=== PATIENT | male | born 1990 | race Caucasian/White ===

== ENCOUNTER 2017-10-27 07:24 | Day surgery (SDC) | payer OTHER ==
[2017-10-27] VITALS (8 sets, daily range): BP systolic 110–119; BP diastolic 64–75
[~2017-10-27] VITALS: Ht 175.3 cm; Wt 68.0 kg
[~2017-10-27 07:24] MED LIST: ceFAZolin sod 1 GM in NS 55 ML IVPB ONE
[2017-10-27] MEDS ORDERED: Bacitracin Oint 15gm Tube TOPIC ONE (07:53)
[2017-10-27] MEDS ORDERED: Betadine 10% Oint 15gm TOPIC ONE (07:53)
[2017-10-27] MEDS ORDERED: Bupivacaine 0.25% Inj 30ml INJ ONE (07:53)
[2017-10-27] MEDS ORDERED: Dexamethasone 4mg/ml vial ONE ×2 (07:53→09:00)
[2017-10-27] MEDS ORDERED: Lidocaine 1% 10mg/ml/Epi 0.005mg/ml 30ml vial INJ ONE (07:53)
[2017-10-27] MEDS ORDERED: Bacitracin 50000 Units Vial ONE (07:54)
[2017-10-27] MEDS ORDERED: NKM (08:15)
[2017-10-27 08:49] LABS: BASOPHILS % (AUTO) 1.1 % (0.0-2.0); EOSINOPHILS % (AUTO) 2.9 % (0.0-3.0); HEMATOCRIT 44.9 % (42.0-52.0); HEMOGLOBIN 15.6 G/DL (14.2-18.0); LYMPHOCYTES % (AUTO) 20.5 % (20.0-45.0); MEAN CORPUSCULAR VOLUME 94 FL (80-99); MONOCYTES % (AUTO) 9.4 % (1.0-10.0); NEUTROPHILS % (AUTO) 66.1 % (45.0-75.0); PLATELET COUNT 187 K/UL (150-450); RED BLOOD COUNT 4.76 M/UL (4.70-6.10); WHITE BLOOD COUNT 7.7 K/UL (4.8-10.8)
[2017-10-27] MEDS ORDERED: LR 1000ml 1,000 ML IVLG SCH (08:55)
--- NOTE | 2017-10-27 08:55 | Pre-Procedure Note/Attestation ---
Pre-Procedure Note/Attestation Complete Prior to Procedure Planned Procedure: right Procedure Narrative: correction of a right bunion with osteotomy and screw fixation Indications for Procedure Pre-Operative Diagnosis: right foot painful bunion Attestation I attest that I discussed the nature of the procedure; its benefits; risks and complications; and alternatives (and the risks and benefits of such alternatives ), prior to the procedure, with the patient (or the patient's legal agency service representative). I attest that, if there was a reasonable possibility of needing a blood transfusion, the patient (or the patient's legal agency service representative) was given the [facility] standardized written summary, pursuant to the [place] Blood Safety Act ([place] Health and Safety Code # 1645, as amended). I attest that I re-evaluated the patient just prior to the surgery and that there has been no change in the patient's H&P, except as documented below: JANETT WILLIS DPM Oct 27, 2017 08:55
[2017-10-27 08:57] LABS: ANION GAP 5 mmol/L (5-15); BLOOD UREA NITROGEN 14 mg/dL (7-18); CALCIUM 9.3 MG/DL (8.5-10.1); CARBON DIOXIDE 30 MMOL/L (21-32); CHLORIDE 103 MMOL/L (98-107); POTASSIUM 4.4 MMOL/L (3.5-5.1); SODIUM 138 MMOL/L (136-145)
--- NOTE | 2017-10-27 08:58 | Anethesia Preoperative Eval ---
Anesthesia Pre-op PMH/ROS General Date of Evaluation: Oct 27, 2017 Time of Evaluation: 09:00 Anesthesiologist: ENRIQUE ASA Score: ASA 2 Mallampati Score Class I : Soft palate, uvula, fauces, pillars visible Class II: Soft palate, uvula, fauces visible Class III: Soft palate, base of uvula visible Class IV: Only hard plate visible Mallampati Classification: Class II Surgeon: ALBA Diagnosis: bUNION Surgical Procedure: BUNIECTOMY Anesthesia History: none Family History: no anesthesia problems Allergies: Coded Allergies: No Known Allergies (Unverified , 10/27/17) Medications: see eMAR Anesthesia Pre-op Phys. Exam Physician Exam Last Vital Signs Date Time Temp Pulse Resp B/P (MAP) Pulse Ox O2 Delivery O2 Flow Rate FiO2 10/27/17 08:14 98.0 61 17 113/64 99 Room Air 98.0 Constitutional: NAD Neurologic: CN 2-12 intact Cardiovascular: RRR Respiratory: CTA Gastrointestinal: S/NT/ND Airway Exam Mallampati Score: Class II MO: full ROM: full Teeth: intact Anesthesia Pre-op A/P Labs Hematology Test 10/27/17 08:25 White Blood Count 7.7 K/UL (4.8-10.8) Red Blood Count 4.76 M/UL (4.70-6.10) Hemoglobin 15.6 G/DL (14.2-18.0) Hematocrit 44.9 % (42.0-52.0) Mean Corpuscular Volume 94 FL (80-99) Mean Corpuscular Hemoglobin 32.7 PG (27.0-31.0) H Mean Corpuscular Hemoglobin Concent 34.7 G/DL (32.0-36.0) Red Cell Distribution Width 11.0 % (11.6-14.8) L Platelet Count 187 K/UL (150-450) Mean Platelet Volume 8.0 FL (6.5-10.1) Neutrophils (%) (Auto) 66.1 % (45.0-75.0) Lymphocytes (%) (Auto) 20.5 % (20.0-45.0) Monocytes (%) (Auto) 9.4 % (1.0-10.0) Eosinophils (%) (Auto) 2.9 % (0.0-3.0) Basophils (%) (Auto) 1.1 % (0.0-2.0) Coagulation Test 10/27/17 08:25 Prothrombin Time Pending Prothromb Time International Ratio Pending Activated Partial Thromboplast Time Pending Chemistry Test 10/27/17 08:25 Sodium Level Pending Potassium Level Pending Chloride Level Pending Carbon Dioxide Level Pending Blood Urea Nitrogen Pending Creatinine Pending Estimat Glomerular Filtration Rate Pending Glucose Level Pending Calcium Level Pending Risk Assessment & Plan Plan: GA Status Change Before Surgery: No Pre-Antibiotics Drug: ANCEF Given Within 1 Hr of Incision: Yes Time Given: 09:15 Severo Wall M.D. Oct 27, 2017 08:58
[2017-10-27] MEDS ORDERED: Acetaminophen (Non formulary) 100 ML IV ONE (09:00)
[2017-10-27] MEDS ORDERED: Propofol 200mg/20ml IV ONE (09:00)
[2017-10-27] MEDS ORDERED: LR 1000ml ONE (09:00)
[2017-10-27] MEDS ORDERED: Midazolam 2mg/2ml Inj ONE (09:00)
[2017-10-27] MEDS ORDERED: Metoclopramide 10mg/2ml Inj ONE (09:00)
[2017-10-27] MEDS ORDERED: fentaNYL 100 mcg/2 mL IV ONE (09:00)
[2017-10-27] MEDS ORDERED: Midazolam 2mg/2ml Inj IVP PRN (09:00)
[2017-10-27] MEDS ORDERED: Ketorolac 30mg Inj IV PRN (09:00)
[2017-10-27] MEDS ORDERED: Glycopyrrolate 0.2mg/ml 1ml Vial ONE (09:00)
[2017-10-27] MEDS ORDERED: fentaNYL 100 mcg/2 mL IV PRN (09:00)
[2017-10-27] MEDS ORDERED: Ketorolac 30mg Inj ONE (09:00)
[2017-10-27] MEDS ORDERED: Sterile Water Irrig 1000ml IRRIG ONE (09:00)
[2017-10-27] MEDS ORDERED: DiphenhydrAMINE 50mg/ml Inj IVP PRN (09:00)
[2017-10-27] MEDS ORDERED: NS Irrig 1000ml ONE (09:00)
--- NOTE | 2017-10-27 09:00 | Immediate Post-Op Evaluation ---
Immediate Post-Op Evalulation Immediate Post-Op Evalulation Procedure: BUNIECTOMY Date of Evaluation: Oct 27, 2017 Time of Evaluation: 12:00 IV Fluids: 1000 Blood Products: 0 Estimated Blood Loss: 20 Urinary Output: 0 Blood Pressure Systolic: 145 Blood Pressure Diastolic: 65 Pulse Rate: 69 Respiratory Rate: 18 O2 Sat by Pulse Oximetry: 99 Temperature (Fahrenheit): 98.6 Pain Score (1-10): 0 Nausea: No Vomiting: No Patient Status: awake, reacts, patent, extubated, none Hydration Status: adequate Drug: ANCEF Given Within 1 Hr of Incision: Yes Time Given: 09:15 Severo Wall M.D. Oct 27, 2017 09:00
--- NOTE | 2017-10-27 09:02 | 48 Hour Post Anesthesia Eval ---
Post Anesthesia Evaluation Procedure: BUNIECTOMY Date of Evaluation: Oct 29, 2017 Time of Evaluation: 09:00 Blood Pressure Systolic: 143 0: 70 Pulse Rate: 72 Respiratory Rate: 19 Temperature (Fahrenheit): 98.5 O2 Sat by Pulse Oximetry: 99 Airway: patent Nausea: No Vomiting: No Pain Intensity: 0 Hydration Status: adequate Mental Status/LOC: patient returned to baseline Post-Anesthesia Complications: NONE Follow-up care needed: ready to discharge Severo Wall M.D. Oct 27, 2017 09:01
--- NOTE | 2017-10-27 10:44 | Diagnostic Imaging Report ---
Indication: Pain Comparison: None Findings: 3 views of the right foot were obtained. No acute fractures, malalignment, erosions or periostitis are identified. Soft tissues are unremarkable. Impression: No acute findings.
--- NOTE | 2017-10-27 11:06 | Brief Operative Note ---
Immediate Post Operative Note Operative Note Pre-op Diagnosis: right foot painful bunion Procedure: bunionectomy right foot with osteotomy and screw fixation Post-op Diagnosis: same as pre op Post-op Diagnosis: same as pre-op Surgeon: janett mendez dpm Anesthesiologist: kateryna Anesthesia: moderate sedation Specimen: yes Complications: none Condition: stable Fluids: non Estimated Blood Loss: none Drains: none Tourniquet time: 66 Implant(s) used?: Yes JANETT MENDEZ DPM Oct 27, 2017 11:06
--- NOTE | 2017-10-27 13:56 | Diagnostic Imaging Report ---
Indication: Postop. Right foot Comparison: None Findings: 3 views of the right foot were obtained. Bunionectomy and resection of the medial part of the first metatarsal head noted. Osteotomy with placement of a screw noted. IMPRESSION: Postoperative confirmation
--- NOTE | 2017-10-27 19:30 | Pre-op HX & Phy Repo 2 SIG ---
DATE OF ADMISSION: 10/27/2017 DATE OF SURGERY: Set for today, 10/27/2017. HISTORY OF PRESENT ILLNESS: This is a 27-year-old male with progressively worsening pain and deformity of the right foot. The right foot has painful medial prominence at the first MPJ. This deformity has been progressively worsened over the past year. He has tried numerous conservative measurements including padding, offloading, shoe gear modification, and orthotics, but he continues to experience daily pain. He reports no recent illnesses, recurrent nausea, vomiting, fever, chills, and shortness of breath. The patient will be scheduled to have surgery done for corrective bunion surgery today at [facility]. PAST MEDICAL HISTORY: Denies. PAST SURGICAL HISTORY: No pertinent findings. MEDICATION: Denies. ALLERGIES: No known drug allergies. SOCIAL HISTORY: Denied illicit drug use or tobacco. FAMILY HISTORY: No pertinent findings. PHYSICAL EXAMINATION: VITAL SIGNS: Temperature 97.7 degrees, pulse 66, respiratory rate is 16, blood pressure is 120/70, and O2 saturation is 98% at room temperature. DERMATOLOGICAL: No open lesion. Hyperkeratotic lesion at plantar first MPJ and plantar PIPJ of the first . Neurological sensation is intact. VASCULAR: Dorsalis pedis and posterior artery are palpable. No edema or erythema noted. MUSCULOSKELETAL: Medial bony prominence of the first metatarsophalangeal joint, which is tender to palpation. The hallux is abducted away from midline of the body and abutting to the second toe. Full muscle strength was noticed bilaterally. ASSESSMENT AND PLAN: This is a 27-year-old male with painful right foot, who is suffering from a bunion deformity. The patient has tried numerous conservative measures; however, he still has extensive pain daily. Recommended surgery for next step in management. The risks, benefits, and alternatives were discussed with the patient in detail, who understands and wants to proceed with the surgical intervention. All the patient's questions and concerns have been addressed and the surgery is scheduled today at [facility]. Dhiraj Maloney D.P.M. DR: Betty JOB#: [id number] CC:
--- NOTE | 2017-10-28 02:00 | Operative Note - Dictated ---
DATE OF OPERATION: 10/27/2017 NOTE: POOR AUDIO SURGEON: Dhiraj Maloney D.P.M. ANESTHESIOLOGIST: . FACILITY: [facility]. PREOPERATIVE DIAGNOSIS: Right foot bunion. POSTOPERATIVE DIAGNOSIS: Right foot bunion. TITLE OF OPERATION: Right foot bunionectomy with osteotomy and a screw fixation. ANESTHESIA: Monitored anesthesia care. HEMOSTASIS: Pneumatic ankle tourniquet set at 250 mmHg. ESTIMATED BLOOD LOSS: Less than 5 mL. MATERIAL USED: 2-0 Vicryl, 4-0 Vicryl, 4-0 nylon, and a 24 mm 3-0 Vilex cannulated screw. INJECTABLE: A 20 mm consisting of 1:1 mixture of 0.25% Marcaine plain and 1% lidocaine was injected into the right foot in Bethea fashion. About 10 mL that included 2 mL of Decadron with 8 mL of plain Marcaine was given postoperatively for pain management and inflammatory process. PATHOLOGY: Bone resected from the right first eminence was sent for pathology and further study. DRESSING: The incision site was covered with Xeroform, Betadine ointment, 4 x 4, Kerlix, and Emerson. COMPLICATIONS: None. CONDITION: Stable. DESCRIPTION OF PROCEDURE: The patient was brought into the operating room and was assisted onto the operating table in a supine position. He was well padded to avoid excessive pressure. The patient was then given 1 g of Ancef before the start of surgery. A time-out was performed. Cotton padded pneumatic ankle tourniquet was placed about the patient's right ankle. Following IV sedation, a local anesthetic block was administered to the right foot approximately 20 mL of 1:1 mixture of 0.25% plain Marcaine and 1% plain lidocaine. The foot was then scrubbed, prepped, and draped in the usual aseptic manner. Attention was directed to the right foot. An Esmarch bandage was utilized to exsanguinate the patient's right foot and the pneumatic ankle tourniquet was then inflated to 250 mmHg. Local anesthesia was checked by pinching the skin using a rat-tooth clamp. The patient did not react to the stimulus. The skin marking pen was then used to draw the planned incision on the dorsal medial aspect of the first metatarsophalangeal joint on the right. A blade was then used to make approximately a 5 cm linear incision. A new blade was then utilized to continue sharp and blunt dissection, which was carried down to the level of the capsule joint with care taken to retract all vital neurovascular structures. Soft tissue was then dissected and the capsule was retracted using a linear capsulotomy to expose the head of the first metatarsal. A #15 blade was then utilized to perform a lateral soft tissue release from the base of the phalanx. At this time, the plantar aspect and the position of sesamoid was checked and sesamoid apparatus from the lateral side was released and sesamoid floated into better position. With all vital structures retracted and protected, a sagittal saw was then utilized to cut the medial bony eminence. The bone was then passed from the operating site, which was sent for pathology and further study. A modified Reverdin osteotomy was made at the first metatarsophalangeal head with a sagittal saw and created a capital fragment. The capital fragment was then shifted laterally approximately 5 mm to a better position. The motion of the hallux was checked. Full motion was noticed. It should be noted that there were multiple osteophytic as well as degenerative changes were noticed in the joint. At this time, a premeasured K-wire was driven from proximal dorsal to plantar lateral. The depth was measured and countersink. The measurement was 24 mm. The premeasured K-wire across the osteotomy site 24 mm Vilex screw was then inserted from the dorsal proximal to plantar distal orientation. The screw made full contact and adhered the bone together. The K-wire was then removed. A sagittal saw and a rasp was utilized to resect overhanging bone. We smoothed out all the sharp edges. Visual inspection was done. At this time, copious amounts of irrigation with normal saline and bacitracin was used to flush out the surgical site. The capsule was then closed using 2-0 Vicryl followed by subcutaneous closure using 4-0 Vicryl and subsequently, the skin was closed using 4-0 nylon. At this time, a postoperative injection including 2 mL of dexamethasone was given in the area. The incision site was then dressed using Betadine ointment, Xeroform, 4 x 4, Emerson, and Coban. The ankle tourniquet was then deflated and immediate hyperemia was noted to digits 1 through 5 on the right. The toe was pink and capillary refill was less than 2 seconds. The patient tolerated the surgery and anesthesia well without any complications. He was then transferred to the postoperative care unit and states no pain. The patient reminded to take antibiotic, ibuprofen, and pain medication as directed. He was also instructed to keep the leg elevated and dressings clean, dry, and intact. Radiograph, crutches, and postoperative shoe were ordered. The patient was able to bear partial weight on the right heel to avoid standing for a long duration of time. The patient is to be discharged once medically cleared by anesthesiologist and has a followup appointment on Monday with Dr. Maloney. Dhiraj Maloney D.P.M. DR: Betty JOB#: [id number] CC: LALO
--- NOTE | 2017-10-29 16:04 | Cardiology Report ---
APPROVED REPORT EKG Measurement Heart [id number] Sinus rhythm with premature atrial complexes Incomplete right bundle branch block Borderline ECG
== END 2017-10-27 13:40 | disposition home or self-care (01) ==
LOC: SUR 07:24 → EDBD 09:00 → SUR 13:40
DX: M21.611 Bunion of right foot (principal); I45.10 Unspecified right bundle-branch block
CPT/HCPCS: 28296; 36415; 73630; 80048; 85025; 85610; 85730; 93005; 97161; C1713; J0690; J1100; J1885; J2250; J2405; J2704; J2765; J3010; J3490; J7120; 94003; 94150